=== PATIENT | male | born 1965 | race Asian ===

== ENCOUNTER → 2022-02-24 | Day surgery (SDC) | payer OTHER ==
[~2022-02-24] MED LIST: FENTANYL CITRATE/PF 100MCG/2 ML INJ ONE; HYOSCYAMINE SULFATE 0.5 MG/ML INJ ONE; MIDAZOLAM HCL 2 MG/2 ML VIAL ONE; OMEPRAZOLE40 MG PO; PROPOFOL IV EMULSION 10 MG/ML 20 ML VIAL ONE; PROPOFOL IV EMULSION 50 ML IV ONE
[2022-02-24 10:50] VITALS: BP 149/98
== END | disposition home or self-care (01) ==
LOC: OR 06:30
PROVIDERS: ATTEND Internal Medicine Gastroenterology
DX: K29.50 Unspecified chronic gastritis without bleeding (principal); D12.5 Benign neoplasm of sigmoid colon; B96.81 Helicobacter pylori [H. pylori] as the cause of diseases classified elsewhere; K31.A11 Gastric intestinal metaplasia without dysplasia, involving the antrum; K20.90 Esophagitis, unspecified without bleeding; K21.9 Gastro-esophageal reflux disease without esophagitis; K62.89 Other specified diseases of anus and rectum; R15.0 Incomplete defecation; Z01.810 Encounter for preprocedural cardiovascular examination; Z86.19 Personal history of other infectious and parasitic diseases
CPT/HCPCS: 36415; 43239; 45380; 45385; 82948; 93005; C9113; J1980; J2250; J2704 ×2; J3010; 45378

== ENCOUNTER → 2022-07-15 | Outpatient (CLI) | payer OTHER ==
[~2022-07-15] MED LIST changes: -FENTANYL CITRATE/PF 100MCG/2 ML INJ ONE; -HYOSCYAMINE SULFATE 0.5 MG/ML INJ ONE; -MIDAZOLAM HCL 2 MG/2 ML VIAL ONE; -PROPOFOL IV EMULSION 10 MG/ML 20 ML VIAL ONE; -PROPOFOL IV EMULSION 50 ML IV ONE
== END ==
LOC: RAD 10:21
PROVIDERS: ATTEND Student in an Organized Health Care Education/Training Program
DX: M54.2 Cervicalgia (principal); M13.0 Polyarthritis, unspecified; M25.521 Pain in right elbow; M25.522 Pain in left elbow; M79.641 Pain in right hand; M54.50 Low back pain, unspecified; K75.9 Inflammatory liver disease, unspecified; Z22.7 Latent tuberculosis; M45.6 Ankylosing spondylitis lumbar region
CPT/HCPCS: 72040; 72110; 72202